=== PATIENT | male | born 1980 | race Caucasian/White ===

== ENCOUNTER 2018-11-04 13:34 | Emergency (ER) | payer OTHER ==
[~2018-11-04] VITALS: Ht 152.4 cm; Wt 78.6 kg
[2018-11-04 13:49] VITALS: Ht 152.4 cm; Wt 78.6 kg
[2018-11-04 17:26] VITALS: BP 168/108
== END 2018-11-04 17:26 | disposition home or self-care (01) ==
LOC: ED 13:34
DX: S43.005A Unspecified dislocation of left shoulder joint, initial encounter (principal); S09.8XXA Other specified injuries of head, initial encounter; I10 Essential (primary) hypertension; M10.9 Gout, unspecified; J45.909 Unspecified asthma, uncomplicated; W18.30XA Fall on same level, unspecified, initial encounter; Y93.89 Activity, other specified; Y92.89 Other specified places as the place of occurrence of the external cause; Y99.8 Other external cause status
CPT/HCPCS: J2704; J7050; Q0092

== ENCOUNTER 2019-04-17 15:50 | Emergency (ER) | payer OTHER ==
[~2019-04-17] VITALS: Ht 162.6 cm; Wt 72.6 kg
[2019-04-17 16:02] VITALS: Ht 162.6 cm; Wt 72.6 kg
[2019-04-17 18:52] VITALS: BP 133/89
== END 2019-04-17 18:52 | disposition home or self-care (01) ==
LOC: ED 15:50
DX: I10 Essential (primary) hypertension (principal); R51 Headache; R11.2 Nausea with vomiting, unspecified; Z88.8 Allergy status to other drugs, medicaments and biological substances
CPT/HCPCS: J1100; J2765; J3475; J7030